=== PATIENT | male | born 1995 | race Caucasian/White ===

== ENCOUNTER 2018-08-30 09:13 | Inpatient (IN) | payer OTHER ==
[2018-08-30 09:38] VITALS: BMI 22.2
--- NOTE | 2018-08-30 11:27 | HP ---
COWS - Scale Resting Pulse: 1= [place] 81-100 Sweatin= Chills/Flushing Restless Observation: 3= Extraneous Movement Pupil Size: 1= Pupils >than Normal Bone or Joint Aches: 2= Severe Diffuse Aches Runny Nose/ Eye Tearin= Runny Nose/Eyes GI Upset > 30mins: 2= Nausea/Diarrhea Tremor Observation: 2= Slight Tremor Visible Yawning Observation: 2= >3x During Session Anxiety or Irritability: 2=Irritable/Anxious Goose Flesh Skin: 0=Smooth Skin COWS Score: 18 CIWA Score Nausea/Vomitin Muscle Tremors: 2 Anxiety: 2 Agitation: 2 Paroxysmal Sweats: 1-Minimal Palms Moist Orientation: 0-Oriented Tacttile Disturbances: 1-Very Mild Itch/Numbness Auditory Disturbances: 1-Very Mild Visual Disturbances: 0-None Headache: 2-Mild CIWA-Ar Total Score: 13 - Admission Criteria [facility] Guidelines: Admission for Medically Managed Detox: Requires at least one of the followin. CIWA greater than 12 2. Seizures within the past 24 hours 3. Delirium tremens within the past 24 hours 4. Hallucinations within the past 24 hours 5. Acute intervention needed for co occurring medical disorder 6. Acute intervention needed for co occurring psychiatric disorder 7. Severe withdrawal that cannot be handled at a lower level of care (continued vomiting, continued diarrhea, abnormal vital signs) requiring intravenous medication and/or fluids 8. Patient presents the following: CIWA greater than 12 Admission Criteria Met: Admission criteria met Admission ROS [facility] - [facility] Chief Complaint: i need help to stop using heroin and alcohol and xanax Allergies/Adverse Reactions: Allergies Allergy/AdvReac Type Severity Reaction Status Date / Time No Known Allergies Allergy Verified 08/30/18 10:22 History of Present Illness: this 23 years old male with heroin,alcohol and xanax dependence,seeing detox, withdrawal symptom,last detox 10/22/14 to 10/27/17 syncope nicotine dependence longest period of sobriety 3 years weight loss i stop showed patient is on alprazolam 1 mg tid last 07/24/18 ,run out of medication,did not want to go [place] any more Exam Limitations: No Limitations - Ebola screening Have you traveled outside of the country in the last 21 days: No Have you had contact with anyone from an Ebola affected area: No Have you been sick,other than usual withdrawal symptoms: No Do you have a fever: No - Review of Systems Constitutional: Chills, Loss of Appetite, Malaise, Night Sweats, Changes in sleep, Weakness, Unintentional Wgt. Loss EENT: reports: Tearing, Nose Congestion Respiratory: reports: No Symptoms reported Cardiac: reports: No Symptoms Reported GI: reports: Nausea, Poor Appetite, Abdominal cramping Musculoskeletal: reports: Back Pain, Muscle Pain Integumentary: reports: Dryness Neuro: reports: Headache, Tremors Endocrine: reports: No Symptoms Reported Hematology: reports: No Symptoms Reported Psychiatric: reports: No Sypmtoms Reported, Judgement Intact, Mood/Affect Appropiate, Orientated x3 Patient History - Patient Medical History Hx Anemia: No Hx Asthma: No Hx Chronic Obstructive Pulmonary Disease (COPD): No Hx Cancer: No Hx Cardiac Disorders: No Hx Congestive Heart Failure: No Hx Hypertension: No Hx Hypercholesterolemia: No Hx Pacemaker: No HX Cerebrovascular Accident: No Hx Seizures: No Hx Dementia: No Hx Diabetes: No Hx Gastrointestinal Disorders: No Hx Liver Disease: No Hx Genitourinary Disorders: No Hx Sexually Transmitted Disorders: No Hx Renal Disease (ESRD): No Hx Thyroid Disease: No Hx Human Immunodeficiency Virus (HIV): No (negative last 2017) Hx Hepatitis C: No Hx Depression: No Hx Suicide Attempt: No Hx Bipolar Disorder: No Hx Schizophrenia: No Other Medical History: no suicidal,no homicidal - Patient Surgical History Past Surgical History: No Hx Neurologic Surgery: No Hx Cataract Extraction: No Hx Cardiac Surgery: No Hx Lung Surgery: No Hx Breast Surgery: No Hx Breast Biopsy: No Hx Abdominal Surgery: No Hx Appendectomy: No Hx Cholecystectomy: No Hx Genitourinary Surgery: No Hx Section: No Hx Orthopedic Surgery: No Anesthesia Reaction: No - PPD History Previous Implant?: Yes Documented Results: Negative w/proof Implanted On Prior R Admission?: Yes Date: 10/24/14 Results: 0 mm PPD to be Administered?: Yes - Smoking Cessation Smoking history: Current every day smoker Have you smoked in the past 12 months: Yes Aproximately how many cigarettes per day: 10 Hx Chewing Tobacco Use: No Initiated information on smoking cessation: Yes 'Breaking Loose' booklet given: 08/30/18 - Substance & Tx. History Hx Alcohol Use: Yes Hx Substance Use: Yes Substance Use Type: Alcohol, Cocaine, Tranquilizers Hx [facility] - Substances Abused Heroin Route: Injection Frequency: Daily Amount used: 20 bags Age of first use: 15 Date of Last Use: 08/30/18 Alcohol-vodka Route: Oral Frequency: Daily Amount used: 1-2 pts.vodka Age of first use: 15 Date of Last Use: 08/29/18 Xanax Route: Oral Frequency: Daily Amount used: 3 mg. Age of first use: 19 Date of Last Use: 08/14/18 Family Disease History - Family Disease History Family History: Denies Admission Physical Exam [facility] - Vital Signs Vital Signs: Vital Signs - 24 hr 08/30/18 09:37 Temperature 97.4 F L Pulse Rate 83 Respiratory 20 Rate Blood Pressure 139/90 - Physical General Appearance: Yes: Moderate Distress, Tremorous, Irritable, Sweating, Anxious HEENTM: Yes: Normal ENT Inspection, ОЛЬГА, Pharynx Normal Respiratory: Yes: Lungs Clear, Normal Breath Sounds, No Respiratory Distress Neck: Yes: Within Normal Limits, Supple, Trachea in good position Breast: Yes: Breast Exam Deferred Cardiology: Yes: Within Normal Limits, Regular Rhythm, Regular Rate, S1, S2 Abdominal: Yes: Within Normal Limits, Normal Bowel Sounds, Non Tender, Flat, Soft Genitourinary: Yes: Within Normal Limits Back: Yes: Muscle Spasm Musculoskeletal: Yes: full range of Motion, Back pain, Joint Stiffness, Muscle Pain Extremities: Yes: Tremors Neurological: Yes: repairer auto clocks II-XII NML intact, Alert, Motor Strength 5/5 Integumentary: Yes: Track [place] Lymphatic: Yes: Within Normal Limits - Diagnostic (1) Opioid dependence with withdrawal Current Visit: Yes Status: Acute (2) Alcohol dependence with uncomplicated withdrawal Current Visit: Yes Status: Acute (3) Uncomplicated sedative, hypnotic or anxiolytic withdrawal Current Visit: Yes Status: Acute (4) Nicotine dependence Current Visit: No Status: Chronic (5) Weight loss Current Visit: Yes Status: Acute (6) IVDU (intravenous drug user) Current Visit: Yes Status: Acute (7) Dehydration Current Visit: Yes Status: Acute Cleared for Admission S - Detox or Rehab [facility] Level of Care: Medically Managed Detox Regimen/Protocol: Methadone/Valium [facility] Breath Alcohol Content Breath Alcohol Content: 0 Urine Drug Screen - Results Drug Screen Negative: No Urine Drug Screen Results: OPI-Opiates, FEN-Fentanyl
[2018-08-30] MEDS ORDERED: MAG HYDROX/AL HYDROX/SIMETH 30 ML UNIT-DOSE CUP PO PRN (11:44)
[2018-08-30] MEDS ORDERED: MAGNESIUM CITRATE 300 ML BOTTLE PO PRN (11:44)
[2018-08-30] MEDS ORDERED: hydrOXYzine PAMOATE 25 MG CAPSULE (FP) PO PRN (11:44)
[2018-08-30] MEDS ORDERED: LOPERAMIDE HCL 2 MG CAPSULE PO PRN (11:44)
[2018-08-30] MEDS ORDERED: ACETAMINOPHEN 325 MG TABLET (FP) PO PRN (11:44)
[2018-08-30] MEDS ORDERED: MAGNESIUM HYDROX 2400MG/30ML ORAL SUSPENSION 30 ML CUP PO PRN (11:44)
[2018-08-30] MEDS ORDERED: guaiFENesin/D-METHORPHAN HB 10 ML UNIT-DOSE CUPS PO PRN (11:44)
[2018-08-30] MEDS ORDERED: P-EPHED 60MG/TRIPROLIDI 2.5MG TABLET PO PRN (11:44)
[2018-08-30] MEDS ORDERED: MENTHOL/PHENOL 1 EACH UD MM PRN (11:44)
[2018-08-30] MEDS ORDERED: IBUPROFEN 400 MG TABLET (FP) PO PRN (11:44)
[2018-08-30] MEDS ORDERED: diazePAM 5 MG TABLET PO ONE (12:50)
[2018-08-30] MEDS ORDERED: METHADONE HCL 10 MG TABLET (FOR DETOX USE ONLY) PO ONE ×2 (12:55→23:00)
[2018-08-30] MEDS: diazePAM 5 MG TABLET PO SCH ×2 (14:34→22:17)
[2018-08-30] MEDS: diazePAM 5 MG TABLET PO PRN (17:31)
[2018-08-30] MEDS: THIAMINE HCL 100 MG TABLET (FP) PO SCH (22:16)
[2018-08-30] MEDS: cloNIDine HCL 0.1 MG TABLET PO SCH (22:16)
[2018-08-30] MEDS: CYCLOBENZAPRINE HCL 10 MG TABLET (FP) PO PRN (22:18)
[2018-08-31] MEDS: diazePAM 5 MG TABLET PO SCH ×3 (05:48→22:37)
[2018-08-31] MEDS: CYCLOBENZAPRINE HCL 10 MG TABLET (FP) PO PRN ×4 (05:49→22:15)
[2018-08-31] MEDS ORDERED: METHADONE HCL 10 MG TABLET (FOR DETOX USE ONLY) PO SCH (10:00)
[2018-08-31 10:07] LABS: HEMATOCRIT 46.4 % (35.4-49); MCH 30.1 pg (25.7-33.7); MCHC 34.4 g/dl (32.0-35.9); MEAN CELL VOLUME 87.6 fl (80-96); MEAN PLT VOLUME 8.3 fl (7.5-11.1); PLATELET COUNT 165 K/MM3 (134-434); RDW 13.4 % (11.9-15.9); WHITE BLOOD COUNT 8.2 K/mm3 (4.0-10.0)
[2018-08-31] MEDS: PRENATAL VITAMINS W/ FOLIC ACID TABLET (FP) PO SCH (10:07)
[2018-08-31] MEDS: cloNIDine HCL 0.1 MG TABLET PO SCH ×2 (10:09→22:15)
[2018-08-31] MEDS: diazePAM 5 MG TABLET PO PRN ×3 (10:10→22:15)
[2018-08-31 10:38] LABS: ALBUMIN 4.4 g/dl (3.4-5.0); ALK PHOS 135 U/L (45-117); ANION GAP 6 MMOL/L (8-16); BILIRUBIN,TOTAL 0.9 mg/dL (0.2-1); BLOOD UREA NITROGEN 11 mg/dL (7-18); CHLORIDE 102 mmol/L (98-107); CO2 30 mmol/L (21-32); CREATININE 0.8 mg/dL (0.55-1.3); GLUCOSE,RANDOM 72 mg/dL (74-106); POTASSIUM 4.9 mmol/L (3.5-5.1); SGOT/AST 237 U/L (15-37); SGPT/ALT 435 U/L (13-61); SODIUM 138 mmol/L (136-145); TOT PROT 7.7 g/dl (6.4-8.2)
[2018-08-31] MEDS ORDERED: FLU VACCINE QUAD 60 MCG/0.5 ML (MDV 18-19) IM ONE (12:00)
--- NOTE | 2018-08-31 12:32 | PN ---
[facility] CIWA - CIWA Score Nausea/Vomitin-No Nausea/No Vomiting Muscle Tremors: 3 Anxiety: 3 Agitation: 3 Paroxysmal Sweats: 3 Orientation: 0-Oriented Tacttile Disturbances: 0-None Auditory Disturbances: 0-None Visual Disturbances: 0-None Headache: 0-None Present CIWA-Ar Total Score: 12 [facility] COWS - Scale Resting Pulse: 0= [place] 80 or Below Sweatin=Flushed/Facial Moisture Restless Observation: 1= Difficult to Sit Still Pupil Size: 0= Normal to Room Light Bone or Joint Aches: 1= Mild Discomfort Runny Nose/ Eye Tearin= Nasal Congestion GI Upset > 30mins: 0= None Tremor Observation of Outstretched Hands: 1= Tremor [place], Not Seen Yawning Observation: 1= 1-2x During Session Anxiety or Irritability: 1=Feels Anxious/Irritable Goose Flesh Skin: 3=Piloerection COWS Score: 11 S Progress Note (SOAP) Subjective: agitation sweats shakes interrupted sleep body aches Objective: 08/31/18 12:30 Vital Signs Temperature 98.0 F 08/31/18 09:36 Pulse Rate 60 08/31/18 09:36 Respiratory Rate 18 08/31/18 09:36 Blood Pressure 108/63 08/31/18 09:36 O2 Sat by Pulse Oximetry (%) Laboratory Tests 08/30/18 08/31/18 08/31/18 11:40 05:45 05:45 WBC 8.2 RBC 5.30 Hgb 16.0 Hct 46.4 MCV 87.6 MCH 30.1 MCHC 34.4 RDW 13.4 Plt Count 165 D MPV 8.3 Sodium 138 Potassium 4.9 Chloride 102 Carbon Dioxide 30 Anion Gap 6 L BUN 11 Creatinine 0.8 Creat Clearance w eGFR > 60 Random Glucose 72 L Calcium 9.0 Total Bilirubin 0.9 AST 237 H ALT 435 H Alkaline Phosphatase 135 H Total Protein 7.7 Albumin 4.4 RPR Titer HIV 1&2 Antibody Screen Negative HIV P24 Antigen Negative 08/31/18 05:45 WBC RBC Hgb Hct MCV MCH MCHC RDW Plt Count MPV Sodium Potassium Chloride Carbon Dioxide Anion Gap BUN Creatinine Creat Clearance w eGFR Random Glucose Calcium Total Bilirubin AST ALT Alkaline Phosphatase Total Protein Albumin RPR Titer Nonreactive HIV 1&2 Antibody Screen HIV P24 Antigen aaox3 ambulating no acute distress elevated alt/ast tylenol d/c Assessment: 08/31/18 12:31 withdrawal sx Plan: continue detox increase fluids repeat ast/alt/inr
[2018-08-31 14:58] LABS: URINE APPEARANCE CLEAR; URINE BILIRUBIN NEGATIVE (<2.0 mg/dL); URINE COLOR YELLOW; URINE GLUCOSE (UA) NEGATIVE (NEGATIVE); URINE KETONE NEGATIVE (NEGATIVE); URINE LEUK ESTERASE NEGATIVE (NEGATIVE); URINE NITRITE NEGATIVE (NEGATIVE); URINE PROTEIN NEGATIVE (NEGATIVE)
[2018-08-31] MEDS: THIAMINE HCL 100 MG TABLET (FP) PO SCH (22:14)
[2018-08-31] MEDS: MELATONIN 5 MG TABLETS PO PRN (22:15)
[2018-09-01] MEDS: diazePAM 5 MG TABLET PO PRN ×3 (05:20→18:04)
[2018-09-01] MEDS: CYCLOBENZAPRINE HCL 10 MG TABLET (FP) PO PRN ×3 (05:20→22:12)
[2018-09-01] MEDS: cloNIDine HCL 0.1 MG TABLET PO SCH ×2 (10:18→22:09)
[2018-09-01] MEDS: METHADONE HCL 5 MG TABLET (FOR DETOX USE ONLY) PO SCH (10:18)
[2018-09-01] MEDS: diazePAM 5 MG TABLET PO SCH ×2 (10:18→22:09)
[2018-09-01] MEDS: PRENATAL VITAMINS W/ FOLIC ACID TABLET (FP) PO SCH (10:18)
--- NOTE | 2018-09-01 11:03 | PN ---
[facility] CIWA - CIWA Score Nausea/Vomitin-Mild Nausea/No Vomiting Muscle Tremors: 3 Anxiety: 2 Agitation: 3 Paroxysmal Sweats: 2 Orientation: 0-Oriented Tacttile Disturbances: 0-None Auditory Disturbances: 0-None Visual Disturbances: 0-None Headache: 0-None Present CIWA-Ar Total Score: 11 S COWS - Scale Resting Pulse: 0= [place] 80 or Below Sweatin=Flushed/Facial Moisture Restless Observation: 1= Difficult to Sit Still Pupil Size: 0= Normal to Room Light Bone or Joint Aches: 1= Mild Discomfort Runny Nose/ Eye Tearin= None GI Upset > 30mins: 0= None Tremor Observation of Outstretched Hands: 1= Tremor [place], Not Seen Yawning Observation: 1= 1-2x During Session Anxiety or Irritability: 2=Irritable/Anxious Goose Flesh Skin: 3=Piloerection COWS Score: 11 [facility] Progress Note (SOAP) Subjective: agitation sweats nausea interrupted sleep body aches Objective: 09/01/18 11:09 Vital Signs Temperature 97.2 F L 09/01/18 09:42 Pulse Rate 73 09/01/18 09:42 Respiratory Rate 18 09/01/18 09:42 Blood Pressure 116/73 09/01/18 09:42 O2 Sat by Pulse Oximetry (%) Laboratory Tests 08/30/18 08/31/18 08/31/18 11:40 05:45 05:45 WBC 8.2 RBC 5.30 Hgb 16.0 Hct 46.4 MCV 87.6 MCH 30.1 MCHC 34.4 RDW 13.4 Plt Count 165 D MPV 8.3 Sodium 138 Potassium 4.9 Chloride 102 Carbon Dioxide 30 Anion Gap 6 L BUN 11 Creatinine 0.8 Creat Clearance w eGFR > 60 Random Glucose 72 L Calcium 9.0 Total Bilirubin 0.9 AST 237 H ALT 435 H Alkaline Phosphatase 135 H Total Protein 7.7 Albumin 4.4 Urine Color Urine Appearance Urine pH Ur Specific [place] Urine Protein Urine Glucose (UA) Urine Ketones Urine Blood Urine Nitrite Urine Bilirubin Urine Urobilinogen Ur Leukocyte Esterase RPR Titer HIV 1&2 Antibody Screen Negative HIV P24 Antigen Negative 08/31/18 08/31/18 09/01/18 05:45 13:20 07:00 WBC RBC Hgb Hct MCV MCH MCHC RDW Plt Count MPV Sodium Potassium Chloride Carbon Dioxide Anion Gap BUN Creatinine Creat Clearance w eGFR Random Glucose Calcium Total Bilirubin AST 147 H ALT 347 H Alkaline Phosphatase Total Protein Albumin Urine Color Yellow Urine Appearance Clear Urine pH 6.0 D Ur Specific [place] 1.017 Urine Protein Negative Urine Glucose (UA) Negative Urine Ketones Negative Urine Blood Negative Urine Nitrite Negative Urine Bilirubin Negative Urine Urobilinogen 2.0 Ur Leukocyte Esterase Negative RPR Titer Nonreactive HIV 1&2 Antibody Screen HIV P24 Antigen ast/alt improving inr result pending aaox3 ambulating no acute distress Assessment: 09/01/18 11:12 withdrawal sx Plan: continue detox increase fluids zofran sl prn
[2018-09-01 11:08] LABS: SGOT/AST 147 U/L (15-37); SGPT/ALT 347 U/L (13-61)
[2018-09-01] MEDS ORDERED: ONDANSETRON *ODT* 4 MG TABLET SL PRN (11:13)
[2018-09-01 12:27] LABS: INR 1.01 (0.83-1.09); PROTHROMBIN TIME (PATIENT) 11.9 SEC (9.7-13.0)
[2018-09-01] MEDS: NICOTINE POLACRILEX 2 MG GUM BC PRN ×2 (16:36→22:50)
[2018-09-01] MEDS: THIAMINE HCL 100 MG TABLET (FP) PO SCH (22:09)
[2018-09-01] MEDS: MELATONIN 5 MG TABLETS PO PRN (22:11)
[2018-09-02] MEDS: CYCLOBENZAPRINE HCL 10 MG TABLET (FP) PO PRN ×2 (05:49→13:03)
[2018-09-02] MEDS: diazePAM 5 MG TABLET PO PRN (05:50)
[2018-09-02] MEDS: NICOTINE POLACRILEX 2 MG GUM BC PRN (09:35)
[2018-09-02] MEDS: PRENATAL VITAMINS W/ FOLIC ACID TABLET (FP) PO SCH (10:42)
[2018-09-02] MEDS: METHADONE HCL 5 MG TABLET (FOR DETOX USE ONLY) PO SCH (10:42)
[2018-09-02] MEDS: cloNIDine HCL 0.1 MG TABLET PO SCH (10:42)
[2018-09-02] MEDS: diazePAM 5 MG TABLET PO SCH (10:43)
--- NOTE | 2018-09-02 11:57 | PN ---
[facility] Progress Note (SOAP) Subjective: sweats interrupted sleep Objective: 09/02/18 11:56 Vital Signs Temperature 97.5 F L 09/02/18 09:33 Pulse Rate 87 09/02/18 09:33 Respiratory Rate 18 09/02/18 09:33 Blood Pressure 113/57 L 09/02/18 09:33 O2 Sat by Pulse Oximetry (%) aaox3 ambulating no acute distress Assessment: 09/02/18 11:56 mild withdrawal sx Plan: continue detox increase fluids
[2018-09-02 13:46] VITALS: BP 113/83; PULSE 99; TEMP 97.9
[2018-09-03] MEDS ORDERED: METHADONE HCL 10 MG TABLET (FOR DETOX USE ONLY) PO SCH (10:00)
[2018-09-03] MEDS ORDERED: diazePAM 5 MG TABLET PO SCH (10:00)
[2018-09-04] MEDS ORDERED: METHADONE HCL 5 MG TABLET (FOR DETOX USE ONLY) PO SCH (06:00)
== END 2018-09-02 14:19 | disposition left against medical advice (07) | DRG 770 ==
LOC: YASAS 09:13 → Y6N 12:40
PROC: HZ2ZZZZ Detoxification Services for Substance Abuse Treatment (ICD-10-PCS; principal; 2018-08-30)
DX: F11.23 Opioid dependence with withdrawal (principal); F10.230 Alcohol dependence with withdrawal, uncomplicated; F13.230 Sedative, hypnotic or anxiolytic dependence with withdrawal, uncomplicated; F17.210 Nicotine dependence, cigarettes, uncomplicated; E86.0 Dehydration
CPT/HCPCS: 36415; 80053; 81003; 84450; 84460; 85027; 85610; 86593; 87389; 90688; G0008; J0735

== ENCOUNTER 2021-06-19 10:35 | Inpatient (IN) | payer OTHER ==
[2021-06-19 11:04] VITALS: BMI 21.7
[2021-06-19] MEDS ORDERED: methaDONE HCL 10 MG TABLET (FOR DETOX USE ONLY) PO ONE (12:02)
[2021-06-19] MEDS ORDERED: cloNIDine HCL 0.1 MG TABLET PO PRN (12:02)
[2021-06-19] MEDS ORDERED: MAGNESIUM HYDROX 2400MG/30ML ORAL SUSPENSION 30 ML CUP PO PRN (12:10)
[2021-06-19] MEDS ORDERED: ACETAMINOPHEN 325 MG TABLET (FP) PO PRN ×2 (12:10)
[2021-06-19] MEDS ORDERED: MAGNESIUM CITRATE 300 ML BOTTLE PO PRN (12:10)
[2021-06-19] MEDS ORDERED: BISMUTH SUBSALICYLATE 262 MG/15 ML BTL PO PRN (12:10)
[2021-06-19] MEDS ORDERED: NICOTINE 10 MG CARTRIDGE (INHALER) IH PRN (12:10)
[2021-06-19] MEDS ORDERED: MAG HYDROX/AL HYDROX/SIMETH 30 ML UNIT-DOSE CUP PO PRN (12:10)
[2021-06-19] MEDS ORDERED: ONDANSETRON *ODT* 4 MG TABLET SL PRN (12:10)
[2021-06-19] MEDS ORDERED: MENTHOL/PHENOL 1 EACH UD MM PRN (12:10)
[2021-06-19] MEDS ORDERED: IBUPROFEN 400 MG TABLET (FP) PO PRN (12:10)
[2021-06-19] MEDS: METHOCARBAMOL 500 MG TABLET PO PRN (12:39)
[2021-06-19] MEDS: PRENATAL VITAMINS W/ FOLIC ACID TABLET (FP) PO SCH (12:39)
[2021-06-19] MEDS: diazePAM 5 MG TABLET PO PRN (12:39)
[2021-06-19] MEDS: hydrOXYzine PAMOATE 25 MG CAPSULE (FP) PO SCH ×3 (14:05→22:11)
[2021-06-19] MEDS: diazePAM 5 MG TABLET PO SCH ×2 (17:42→22:12)
[2021-06-19] MEDS: THIAMINE HCL 100 MG TABLET (FP) PO SCH (22:11)
[2021-06-19] MEDS: MELATONIN 5 MG TABLETS PO SCH (22:11)
[2021-06-20] MEDS: hydrOXYzine PAMOATE 25 MG CAPSULE (FP) PO SCH ×5 (05:33→22:15)
[2021-06-20] MEDS: diazePAM 5 MG TABLET PO SCH ×4 (05:35→22:15)
[2021-06-20] MEDS ORDERED: methaDONE HCL 10 MG TABLET (FOR DETOX USE ONLY) ONE (08:44)
[2021-06-20] MEDS: PRENATAL VITAMINS W/ FOLIC ACID TABLET (FP) PO SCH (10:08)
[2021-06-20 11:29] LABS: HEMATOCRIT 41.7 % (35.4-49); HEMOGLOBIN 15.5 GM/dL (11.7-16.9); MCH 30.2 pg (25.7-33.7); MCHC 37.1 g/dl (32.0-35.9); MEAN CELL VOLUME 81.3 fl (80-96); MEAN PLT VOLUME 6.6 fl (7.5-11.1); PLATELET COUNT 211 10^3/uL (134-434); RBC 5.13 M/mm3 (4.00-5.60); RDW 13.8 % (11.9-15.9); WHITE BLOOD COUNT 5.9 K/mm3 (4.0-10.0)
[2021-06-20 11:37] LABS: CALCIUM 9.1 mg/dL (8.5-10.1)
[2021-06-20 11:39] LABS: BILIRUBIN,TOTAL 0.7 mg/dL (0.2-1); CREATININE 0.9 mg/dL (0.55-1.3); TOT PROT 7.9 g/dl (6.4-8.2)
[2021-06-20] MEDS: MELATONIN 5 MG TABLETS PO SCH (22:14)
[2021-06-20] MEDS: THIAMINE HCL 100 MG TABLET (FP) PO SCH (22:15)
[2021-06-21] MEDS: hydrOXYzine PAMOATE 25 MG CAPSULE (FP) PO SCH ×2 (05:30→10:10)
[2021-06-21] MEDS ORDERED: diazePAM 5 MG TABLET PO SCH (06:00)
[2021-06-21] MEDS ORDERED: methaDONE HCL 10 MG TABLET (FOR DETOX USE ONLY) PO ONE (10:00)
[2021-06-21 10:01] VITALS: BP 124/79; PULSE 76; TEMP 97.5
[2021-06-21] MEDS: PRENATAL VITAMINS W/ FOLIC ACID TABLET (FP) PO SCH (10:10)
[2021-06-21] MEDS: METHOCARBAMOL 500 MG TABLET PO PRN (10:10)
[2021-06-21] MEDS: diazePAM 5 MG TABLET PO PRN (10:10)
[2021-06-21 12:59] LABS: HIV INTERPRETATION NEGATIVE (NEGATIVE)
[2021-06-22] MEDS ORDERED: diazePAM 5 MG TABLET PO SCH (06:00)
[2021-06-23] MEDS ORDERED: diazePAM 5 MG TABLET PO ONE (06:00)
[2021-06-23] MEDS ORDERED: methaDONE HCL 10 MG TABLET (FOR DETOX USE ONLY) PO ONE (10:00)
== END 2021-06-21 12:50 | disposition left against medical advice (07) | DRG 770 ==
LOC: YASAS 10:35 → Y6N 11:07
PROVIDERS: ADMIT Allergy & Immunology; ATTEND Allergy & Immunology
PROC: HZ2ZZZZ Detoxification Services for Substance Abuse Treatment (ICD-10-PCS; principal; 2021-06-19)
DX: F11.23 Opioid dependence with withdrawal (principal); F10.230 Alcohol dependence with withdrawal, uncomplicated; F13.20 Sedative, hypnotic or anxiolytic dependence, uncomplicated; F17.210 Nicotine dependence, cigarettes, uncomplicated; F41.9 Anxiety disorder, unspecified; F32.A Depression, unspecified; K76.0 Fatty (change of) liver, not elsewhere classified; Z86.19 Personal history of other infectious and parasitic diseases; Z86.69 Personal history of other diseases of the nervous system and sense organs
CPT/HCPCS: 36415; 80053; 85027; 86780; 87389; C9803; J0735; U0003; U0005

== ENCOUNTER 2021-08-22 10:49 | Emergency (ER) | payer OTHER ==
[2021-08-22 11:12] VITALS: BP 106/60; PULSE 79; TEMP 98.3; BMI 22.4
[2021-08-25 05:09] LABS: SARS-CoV-2 NAA Not Detected (Not Detected)
== END 2021-08-22 15:33 | disposition home or self-care (01) ==
LOC: JER 10:49
DX: F11.229 Opioid dependence with intoxication, unspecified (principal)
CPT/HCPCS: 99283-25; C9803; U0003; U0005

== ENCOUNTER 2021-09-01 12:45 | Inpatient (IN) | payer OTHER ==
[2021-09-01] MEDS ORDERED: ONDANSETRON *ODT* 4 MG TABLET SL PRN (13:35)
[2021-09-01] MEDS ORDERED: MAGNESIUM CITRATE 300 ML BOTTLE PO PRN (13:35)
[2021-09-01] MEDS ORDERED: BISMUTH SUBSALICYLATE 262 MG/15 ML BTL PO PRN (13:35)
[2021-09-01] MEDS ORDERED: IBUPROFEN 400 MG TABLET (FP) PO PRN (13:35)
[2021-09-01] MEDS ORDERED: MAG HYDROX/AL HYDROX/SIMETH 30 ML UNIT-DOSE CUP PO PRN (13:35)
[2021-09-01] MEDS ORDERED: ACETAMINOPHEN 325 MG TABLET (FP) PO PRN ×2 (13:35)
[2021-09-01] MEDS ORDERED: NICOTINE 10 MG CARTRIDGE (INHALER) IH PRN (13:35)
[2021-09-01] MEDS ORDERED: methaDONE HCL 10 MG TABLET (FOR DETOX USE ONLY) PO ONE (13:35)
[2021-09-01] MEDS ORDERED: MAGNESIUM HYDROX 2400MG/30ML ORAL SUSPENSION 30 ML CUP PO PRN (13:35)
[2021-09-01] MEDS ORDERED: MENTHOL/PHENOL 1 EACH UD MM PRN (13:35)
[2021-09-01 13:49] VITALS: BMI 23.0
[2021-09-01] MEDS: METHOCARBAMOL 500 MG TABLET PO PRN (15:44)
[2021-09-01] MEDS: hydrOXYzine PAMOATE 25 MG CAPSULE (FP) PO SCH ×3 (15:44→22:36)
[2021-09-01] MEDS: diazePAM 5 MG TABLET PO SCH ×2 (18:18→22:36)
[2021-09-01] MEDS: THIAMINE HCL 100 MG TABLET (FP) PO SCH (22:36)
[2021-09-01] MEDS: MELATONIN 5 MG TABLETS PO SCH (22:37)
[2021-09-02] MEDS: hydrOXYzine PAMOATE 25 MG CAPSULE (FP) PO SCH ×5 (05:21→22:23)
[2021-09-02] MEDS: diazePAM 5 MG TABLET PO SCH ×4 (05:21→22:23)
[2021-09-02] MEDS ORDERED: methaDONE HCL 10 MG TABLET (FOR DETOX USE ONLY) ONE (09:10)
[2021-09-02] MEDS: PRENATAL VITAMINS W/ FOLIC ACID TABLET (FP) PO SCH (10:13)
[2021-09-02] MEDS: METHOCARBAMOL 500 MG TABLET PO PRN ×2 (10:14→22:23)
[2021-09-02 10:45] LABS: HEMATOCRIT 44.2 % (35.4-49); HEMOGLOBIN 15.2 GM/dL (11.7-16.9); MCHC 34.5 g/dl (32.0-35.9); MEAN PLT VOLUME 7.4 fl (7.5-11.1); PLATELET COUNT 241 10^3/uL (134-434); RBC 5.26 M/mm3 (4.00-5.60); RDW 13.3 % (11.9-15.9); WHITE BLOOD COUNT 5.5 K/mm3 (4.0-10.0)
[2021-09-02 11:01] LABS: CALCIUM 9.1 mg/dL (8.5-10.1)
[2021-09-02 11:02] LABS: ALBUMIN 4.3 g/dl (3.4-5.0); CREATININE 0.7 mg/dL (0.55-1.3)
[2021-09-02 11:03] LABS: BLOOD UREA NITROGEN 11.4 mg/dL (7-18)
[2021-09-02 11:04] LABS: BILIRUBIN,TOTAL 0.8 mg/dL (0.2-1); TOT PROT 7.7 g/dl (6.4-8.2)
[2021-09-02] MEDS: diazePAM 5 MG TABLET PO PRN (14:02)
[2021-09-02] MEDS: THIAMINE HCL 100 MG TABLET (FP) PO SCH (22:23)
[2021-09-02] MEDS: MELATONIN 5 MG TABLETS PO SCH (22:24)
[2021-09-03] MEDS: diazePAM 5 MG TABLET PO SCH ×3 (05:18→22:38)
[2021-09-03] MEDS: hydrOXYzine PAMOATE 25 MG CAPSULE (FP) PO SCH ×5 (05:18→22:38)
[2021-09-03] MEDS: diazePAM 5 MG TABLET PO PRN ×2 (08:34→17:44)
[2021-09-03] MEDS ORDERED: methaDONE HCL 10 MG TABLET (FOR DETOX USE ONLY) PO ONE (10:00)
[2021-09-03] MEDS: PRENATAL VITAMINS W/ FOLIC ACID TABLET (FP) PO SCH (10:21)
[2021-09-03] MEDS: METHOCARBAMOL 500 MG TABLET PO PRN (10:22)
[2021-09-03] MEDS: cloNIDine HCL 0.1 MG TABLET PO PRN ×2 (10:22→22:38)
[2021-09-03] MEDS: THIAMINE HCL 100 MG TABLET (FP) PO SCH (22:38)
[2021-09-03] MEDS: MELATONIN 5 MG TABLETS PO SCH (22:39)
[2021-09-04] MEDS: hydrOXYzine PAMOATE 25 MG CAPSULE (FP) PO SCH (05:31)
[2021-09-04] MEDS: diazePAM 5 MG TABLET PO SCH ×2 (05:31→17:16)
[2021-09-04] MEDS: METHOCARBAMOL 500 MG TABLET PO PRN ×3 (05:32→22:01)
[2021-09-04] MEDS: diazePAM 5 MG TABLET PO PRN ×2 (07:56→11:53)
[2021-09-04] MEDS ORDERED: methaDONE HCL 10 MG TABLET (FOR DETOX USE ONLY) ONE (09:10)
[2021-09-04] MEDS: hydrOXYzine PAMOATE 50 MG CAPSULE (FP) PO PRN ×3 (09:40→22:01)
[2021-09-04] MEDS: PRENATAL VITAMINS W/ FOLIC ACID TABLET (FP) PO SCH (10:04)
[2021-09-04] MEDS ORDERED: SUVOREXANT 10 MG TABLET PO PRN (22:00)
[2021-09-04] MEDS: THIAMINE HCL 100 MG TABLET (FP) PO SCH (22:01)
[2021-09-05 01:18] VITALS: BP 125/89; PULSE 73; TEMP 98
[2021-09-05] MEDS ORDERED: diazePAM 5 MG TABLET PO ONE (06:00)
[2021-09-05] MEDS ORDERED: methaDONE HCL 10 MG TABLET (FOR DETOX USE ONLY) PO ONE (10:00)
== END 2021-09-05 00:55 | disposition left against medical advice (07) | DRG 770 ==
LOC: YASAS 12:45 → Y6N 14:38
PROVIDERS: ADMIT Allergy & Immunology; ATTEND Allergy & Immunology
PROC: HZ2ZZZZ Detoxification Services for Substance Abuse Treatment (ICD-10-PCS; principal; 2021-09-01)
DX: F11.23 Opioid dependence with withdrawal (principal); F10.230 Alcohol dependence with withdrawal, uncomplicated; F13.230 Sedative, hypnotic or anxiolytic dependence with withdrawal, uncomplicated; F14.20 Cocaine dependence, uncomplicated; F12.20 Cannabis dependence, uncomplicated; F17.210 Nicotine dependence, cigarettes, uncomplicated; F19.280 Other psychoactive substance dependence with psychoactive substance-induced anxiety disorder; F19.282 Other psychoactive substance dependence with psychoactive substance-induced sleep disorder; F19.24 Other psychoactive substance dependence with psychoactive substance-induced mood disorder; Z86.19 Personal history of other infectious and parasitic diseases; Z56.0 Unemployment, unspecified
CPT/HCPCS: 36415; 80053; 82962; 85027; 86780; C9803; J0735; U0003; U0005

== ENCOUNTER 2022-01-03 14:07 | Inpatient (IN) | payer OTHER ==
[2022-01-03 15:10] VITALS: BMI 23.0
[2022-01-03] MEDS ORDERED: ONDANSETRON *ODT* 4 MG TABLET SL PRN (15:52)
[2022-01-03] MEDS ORDERED: NALOXONE HCL 0.4 MG/ML VIAL IM PRN (15:52)
[2022-01-03] MEDS ORDERED: MAGNESIUM HYDROX 2400MG/30ML ORAL SUSPENSION 30 ML CUP PO PRN (15:52)
[2022-01-03] MEDS ORDERED: MAG HYDROX/AL HYDROX/SIMETH 30 ML UNIT-DOSE CUP PO PRN (15:52)
[2022-01-03] MEDS ORDERED: DICYCLOMINE HCL 10 MG CAPSULE PO PRN (15:52)
[2022-01-03] MEDS ORDERED: NALOXONE HCL (KLOXXADO) 8 MG SPRAY NS PRN (15:52)
[2022-01-03] MEDS ORDERED: BENZOCAINE/MENTHOL (CHLORASEPTIC ) LOZENGE MM PRN (15:52)
[2022-01-03] MEDS ORDERED: ACETAMINOPHEN 325 MG TABLET (FP) PO PRN ×2 (15:52)
[2022-01-03] MEDS ORDERED: BISMUTH SUBSALICYLATE 524 MG/30 ML PO PRN (15:52)
[2022-01-03] MEDS ORDERED: methaDONE HCL 10 MG TABLET (FOR DETOX USE ONLY) PO ONE (15:52)
[2022-01-03] MEDS ORDERED: P-EPHED 60MG/TRIPROLIDI 2.5MG TABLET PO PRN (15:52)
[2022-01-03] MEDS ORDERED: IBUPROFEN 400 MG TABLET (FP) PO PRN (15:52)
[2022-01-03] MEDS ORDERED: NICOTINE 10 MG CARTRIDGE (INHALER) IH PRN (15:52)
[2022-01-03] MEDS ORDERED: LOPERAMIDE HCL 2 MG CAPSULE PO PRN (15:52)
[2022-01-03] MEDS ORDERED: MAGNESIUM CITRATE 300 ML BOTTLE PO PRN (15:52)
[2022-01-03] MEDS: hydrOXYzine PAMOATE 25 MG CAPSULE (FP) PO PRN (17:46)
[2022-01-03] MEDS: cloNIDine HCL 0.1 MG TABLET PO PRN (17:47)
[2022-01-03] MEDS: diazePAM 5 MG TABLET PO PRN ×2 (17:47→22:45)
[2022-01-03] MEDS: MELATONIN 5 MG TABLETS PO SCH (22:42)
[2022-01-03] MEDS: THIAMINE HCL 100 MG TABLET (FP) PO SCH (22:42)
[2022-01-03] MEDS: METHOCARBAMOL 500 MG TABLET PO PRN (22:43)
[2022-01-04] MEDS: diazePAM 5 MG TABLET PO PRN ×4 (08:49→22:27)
[2022-01-04] MEDS ORDERED: methaDONE HCL 10 MG TABLET (FOR DETOX USE ONLY) ONE (09:13)
[2022-01-04] MEDS: PRENATAL VITAMINS W/ FOLIC ACID TABLET (FP) PO SCH (10:13)
[2022-01-04] MEDS: NICOTINE 21 MG/24 HOURS TOPICAL PATCH TD SCH (10:13)
[2022-01-04] MEDS: NICOTINE POLACRILEX 4 MG GUM BUC PRN (10:16)
[2022-01-04 12:41] LABS: HEMOGLOBIN 13.6 GM/dL (11.7-16.9); MCH 29.2 pg (25.7-33.7); MCHC 33.9 g/dl (32.0-35.9); MEAN CELL VOLUME 86.1 fl (80-96); MEAN PLT VOLUME 8.3 fl (7.5-11.1); PLATELET COUNT 191 10^3/uL (134-434); RBC 4.65 M/mm3 (4.00-5.60); RDW 13.1 % (11.9-15.9)
[2022-01-04 12:52] LABS: CALCIUM 8.8 mg/dL (8.5-10.1)
[2022-01-04 12:53] LABS: ALBUMIN 3.5 g/dl (3.4-5.0)
[2022-01-04 12:56] LABS: BLOOD UREA NITROGEN 9.2 mg/dL (7-18); CREATININE 0.7 mg/dL (0.55-1.3)
[2022-01-04 12:57] LABS: TOT PROT 6.1 g/dl (6.4-8.2)
[2022-01-04 12:58] LABS: BILIRUBIN,TOTAL 0.8 mg/dL (0.2-1)
[2022-01-04] MEDS: hydrOXYzine PAMOATE 25 MG CAPSULE (FP) PO PRN (17:27)
[2022-01-04] MEDS: METHOCARBAMOL 500 MG TABLET PO PRN (22:27)
[2022-01-04] MEDS: MELATONIN 5 MG TABLETS PO SCH (22:27)
[2022-01-04] MEDS: THIAMINE HCL 100 MG TABLET (FP) PO SCH (22:27)
[2022-01-04] MEDS: SUVOREXANT 10 MG TABLET PO PRN (22:28)
[2022-01-05] MEDS: METHOCARBAMOL 500 MG TABLET PO PRN ×3 (06:08→22:14)
[2022-01-05] MEDS: diazePAM 5 MG TABLET PO PRN ×4 (06:08→22:13)
[2022-01-05] MEDS: hydrOXYzine PAMOATE 25 MG CAPSULE (FP) PO PRN ×3 (06:08→22:17)
[2022-01-05] MEDS ORDERED: methaDONE HCL 10 MG TABLET (FOR DETOX USE ONLY) PO ONE (10:00)
[2022-01-05] MEDS: PRENATAL VITAMINS W/ FOLIC ACID TABLET (FP) PO SCH (10:08)
[2022-01-05] MEDS: NICOTINE 21 MG/24 HOURS TOPICAL PATCH TD SCH (10:12)
[2022-01-05] MEDS: cloNIDine HCL 0.1 MG TABLET PO PRN (12:46)
[2022-01-05] MEDS ORDERED: GABAPENTIN 400 MG CAPSULE PO ONE (14:22)
[2022-01-05 16:08] LABS: SARS-CoV-2 NAA Not Detected (Not Detected)
[2022-01-05] MEDS: MELATONIN 5 MG TABLETS PO SCH (22:13)
[2022-01-05] MEDS: THIAMINE HCL 100 MG TABLET (FP) PO SCH (22:13)
[2022-01-05] MEDS: GABAPENTIN 400 MG CAPSULE PO SCH (22:14)
[2022-01-05] MEDS: SUVOREXANT 10 MG TABLET PO PRN (22:15)
[2022-01-06] MEDS: diazePAM 5 MG TABLET PO PRN (08:40)
[2022-01-06 08:48] VITALS: BP 124/69; PULSE 64; TEMP 97.3
[2022-01-06] MEDS ORDERED: methaDONE HCL 10 MG TABLET (FOR DETOX USE ONLY) ONE (09:14)
[2022-01-06] MEDS: PRENATAL VITAMINS W/ FOLIC ACID TABLET (FP) PO SCH (10:07)
[2022-01-06] MEDS: METHOCARBAMOL 500 MG TABLET PO PRN (10:07)
[2022-01-06] MEDS: GABAPENTIN 400 MG CAPSULE PO SCH (10:07)
[2022-01-06] MEDS: hydrOXYzine PAMOATE 25 MG CAPSULE (FP) PO PRN (10:08)
[2022-01-06] MEDS: NICOTINE POLACRILEX 4 MG GUM BUC PRN (10:10)
[2022-01-06] MEDS: NICOTINE 21 MG/24 HOURS TOPICAL PATCH TD SCH (11:00)
[2022-01-07] MEDS ORDERED: methaDONE HCL 10 MG TABLET (FOR DETOX USE ONLY) PO ONE (10:00)
== END 2022-01-06 11:40 | disposition home or self-care (01) | DRG 773 ==
LOC: YASAS 14:07 → Y3N 16:12
PROVIDERS: ADMIT Allergy & Immunology; ATTEND Surgery
PROC: HZ2ZZZZ Detoxification Services for Substance Abuse Treatment (ICD-10-PCS; principal; 2022-01-03)
DX: F11.23 Opioid dependence with withdrawal (principal); F14.20 Cocaine dependence, uncomplicated; F12.20 Cannabis dependence, uncomplicated; F17.210 Nicotine dependence, cigarettes, uncomplicated; F19.282 Other psychoactive substance dependence with psychoactive substance-induced sleep disorder; F19.280 Other psychoactive substance dependence with psychoactive substance-induced anxiety disorder; F19.24 Other psychoactive substance dependence with psychoactive substance-induced mood disorder; F41.9 Anxiety disorder, unspecified; F32.A Depression, unspecified; R63.4 Abnormal weight loss; Z68.23 Body mass index [BMI] 23.0-23.9, adult; Z28.310 Unvaccinated for COVID-19; Z86.19 Personal history of other infectious and parasitic diseases
CPT/HCPCS: 36415; 80053; 85027; 86780; 93005; 93010; C9803-CS; J0735; U0003; U0005